=== PATIENT | female | born 1975 | race Caucasian/White ===

== ENCOUNTER 2018-09-23 20:53 | Emergency (ER) | payer OTHER ==
[~2018-09-23] VITALS: Ht 170.2 cm; Wt 78.9 kg
[2018-09-23 21:13] VITALS: BP 155/89
[2018-09-23 22:04] VITALS: BP 136/89
--- NOTE | 2018-09-23 22:13 | DIREP ---
PROCEDURE:XRAY WRIST MIN 3VW-LT COMPARISON:None. INDICATIONS:WRIST PAIN FINDINGS: BONES:No acute fracture. Diffuse sclerosis and cortical irregularity involving the proximal pole of the scaphoid, suspicious for avascular necrosis. JOINTS:No dislocation. Carpal alignment is normal. Mild degenerative changes involving the STT, scapholunate, radiocarpal joints. SOFT TISSUES:Normal. OTHER:No additional findings. CONCLUSION: 1. Diffuse sclerosis and cortical irregularity involving the proximal pole of the left scaphoid, suspicious for avascular necrosis. 2. No acute fracture or dislocation. 3. Mild degenerative changes, as above. Dictated by: Ross New MD on 09/23/2018 at 10:10 PM
--- NOTE | 2018-09-23 22:36 | ER.PDOC ---
General Chief Complaint: Extremities Stated Complaint: L WRIST PAIN Time seen by MD: 22:15 Source: patient Exam Limitations: no limitations History of Present Illness Initial Comments Hurt her wrist 8 months ago when bread crate fell on it. Seen in ER and after X-ray was cleared and pain subsided. Now about 1 week ago she noticed increasing pain in the wrist over the dorsolateral aspect of the wrist. No recent trauma or straining, but pain is progressive. Allergies: Coded Allergies: No Known Allergies (Unverified , 06/11/17) Home Meds No Active Prescriptions or Reported Meds Past Medical History Medical History: diabetes Surgical History: cholecystectomy, hysterectomy LMP (females 10-50): hysterectomy Family History Significant Family History: no pertinent family hx Social History Smoking: less than 1 pack/day Alcohol Use: none Drug Use: none Review of Systems Constitutional: no symptoms reported EENTM: no symptoms reported Respiratory: no symptoms reported Cardiovascular: no symptoms reported Gastrointestinal: no symptoms reported Genitourinary: no symptoms reported Musculoskeletal: see HPI Skin: no symptoms reported Psychiatric/Neurological: no symptoms reported Physical Exam General Appearance: Alert, No Apparent Distress Hand: nml inspection, non-tender Wrist: nml inspection, tenderness (tenderness over the dorsolateral wrist distal to radius but dorsal to anatomic snuff box.) Forearm/Elbow: nml inspection, non-tender Arm/Shoulder: nml inspection, non-tender Neuro/Vasc/Tendon: sensation nml, motor nml Skin: warm/dry Head/ENT: nml inspection, pharynx nml Neck/Back: nml inspection, non-tender Respiratory: chest non-tender, breath sounds nml CVS: heart sounds normal, tachycardia Abdomen: non-tender, no organomegaly Results/Orders Results/Orders Orders - LYSSA EDWARDS MD Xr Wrist Lt (09/23/18 21:16) Vital Signs Date Time Temp Pulse Resp B/P (MAP) Pulse Ox O2 Delivery O2 Flow Rate FiO2 09/23/18 22:52 98.4 88 18 97 Room Air 09/23/18 22:42 88 18 147/96 (113) 97 Room Air 09/23/18 22:04 90 18 136/89 (105) 98 Room Air 09/23/18 21:13 98.4 93 18 155/89 (111) 99 Room Air 98.4 09/23/18 21:09 98.4 93 18 99 Room Air 98.4 09/23/18 21:09 98.4 93 18 98.4 Departure Time of Disposition: 22:31 Disposition: 01 HOME, SELF-CARE Impression: Primary Impression: Avascular necrosis Condition: Stable Patient Instructions: Avascular Necrosis Referrals: PCP,UNKNOWN (PCP) PRIMARY CARE PROVIDER Additional Instructions: Tylenol #3 qid prn pain #30, Follow up with orthopedist next week. cock up wrist splint Scripts No Active Prescriptions or Reported Meds Duration or Time Spent with Pa: 15 min LYSSA EDWARDS MD September 23, 2018 22:36
[2018-09-23 22:42] VITALS: BP 147/96
[2018-09-23 22:52] VITALS: BP 147/96
== END 2018-09-23 22:50 | disposition home or self-care (01) ==
LOC: ER 20:53
DX: M87.9 Osteonecrosis, unspecified (principal); E11.9 Type 2 diabetes mellitus without complications; F17.210 Nicotine dependence, cigarettes, uncomplicated; Z90.49 Acquired absence of other specified parts of digestive tract; Z90.710 Acquired absence of both cervix and uterus
CPT/HCPCS: 99284; 73110-LT

== ENCOUNTER 2020-08-12 16:59 | Emergency (ER) | payer OTHER ==
[~2020-08-12] VITALS: Ht 170.2 cm; Wt 62.1 kg
[2020-08-12 17:12] VITALS: BP 127/87
[2020-08-12] MEDS ORDERED: SOLU-MEDROL IM STA (17:28)
[2020-08-12] MEDS ORDERED: DECADRON IH STA (17:28)
[2020-08-12] MEDS ORDERED: DUO 0.5-3(2.5) MG/3 ML IH STA (17:28)
[2020-08-12] MEDS ORDERED: DECADRON ONE (17:30)
[2020-08-12] MEDS ORDERED: DUO 0.5-3(2.5) MG/3 ML IH ONE (17:30)
[2020-08-12] MEDS ORDERED: SOLU-MEDROL ONE (17:31)
--- NOTE | 2020-08-12 17:33 | ER.PDOC ---
General Chief Complaint: Cough/Congestion Stated Complaint: COUGH/FEVER Time seen by MD: 17:29 Source: patient Exam Limitations: no limitations History of Present Illness Initial Comments 45 years old smoker complaining of fever, cough and chest congestion for 2 days. No chest pain or shortness of breath. Timing/Duration: gradual Severity: moderate Associated Symptoms: fever/chills, runny nose, cough Allergies: Coded Allergies: No Known Allergies (Unverified , 06/11/17) Home Meds No Active Prescriptions or Reported Meds Constitutional: see HPI EENTM: see HPI Respiratory: see HPI Cardiovascular: no symptoms reported Gastrointestinal: no symptoms reported All Other Systems: Reviewed and Negative Past Medical History Medical History: diabetes Surgical History: cholecystectomy, hysterectomy, tubal Social History Alcohol Use: none Drug Use: none Physical Exam General Appearance: alert, no distress Nose: rhinorrhea Throat: pharynx nml, airway nml Neck: nml inspection, supple Respiratory: no resp.distress, wheezes Abdomen: non-tender, no organomegaly CVS: reg rate & rhythm, heart sounds nml Skin: color nml, no rash, warm/dry Extremities: non-tender, nml ROM, no pedal edema NEURO/PSYCH: oriented x 3, CN's nml as tested, motor nml, sensation nml, mood/affect nml Results/Orders Results/Orders Vital Signs Date Time Temp Pulse Resp B/P (MAP) Pulse Ox O2 Delivery O2 Flow Rate FiO2 08/12/20 17:12 98.7 96 16 95 08/12/20 17:12 98.7 96 16 127/87 (100) 95 Room Air 08/12/20 17:12 98.7 96 16 Progress Progress Patient feeling better with the breathing treatments. She will be discharged home with antibiotic, inhaler and steroids. ER DEPART Departure Time of Disposition: 17:31 Disposition: 01 HOME, SELF-CARE Impression: Primary Impression: Acute bronchitis Condition: Stable Referrals: DEBORAH OLIVA MD (PCP) PRIMARY CARE PROVIDER Additional Instructions: Z pack Prednisone Albuterol HFA Mucinex DM OTC as directed F/U with your PCP in 5-7 days Return to ED if worsening symptoms or concerns Scripts No Active Prescriptions or Reported Meds Duration or Time Spent with Pa: 10 min Problem Qualifiers Primary Impression: Acute bronchitis Bronchitis organism: unspecified organism Qualified Codes: J20.9 - Acute bronchitis, unspecified EROS,PAM Tipton MD Aug 12, 2020 17:33
== END 2020-08-12 17:44 | disposition home or self-care (01) ==
LOC: ER 16:59
DX: J20.9 Acute bronchitis, unspecified (principal); E11.9 Type 2 diabetes mellitus without complications; Z90.49 Acquired absence of other specified parts of digestive tract; Z90.710 Acquired absence of both cervix and uterus
CPT/HCPCS: 94640; 96372; 99283; J1100; J2930; J7620

== ENCOUNTER 2020-09-11 12:25 | Emergency (ER) | payer OTHER ==
[~2020-09-11] VITALS: Ht 170.2 cm; Wt 78.0 kg
--- NOTE | 2020-09-11 12:35 | ER.PDOC ---
General Chief Complaint: Requesting Medical Care Stated Complaint: SORE THROAT Time seen by MD: 12:28 Source: patient Exam Limitations: no limitations History of Present Illness Initial Comments This 45-year-old white female comes in with a complaint of a sore throat. She states that it is on the left side 1 day could be on the right side the next day. She states that she has ear pain with swallowing. The ear pain will be on what ever side this throat is sore. Patient does state that she has chronic bronchitis from smoking. She was recently treated with a Z-Steve approximately 3 weeks ago. Patient still is complaining of some wheezing and she has running out of her albuterol inhaler so I will refill that.Patient does not have any symptoms that would suggest an acute infectious process. It sounds more likely that she has some allergy issues on top of her chronic bronchitis issues and that she is is going to have to treat it symptomatically. Timing/Duration: gradual Associated Symptoms: mild sore throat, runny nose, congestion, earache (R), earache (L), cough Severity: moderate Worsen By: nothing Prior symptoms/Treatment: Similar symptoms previous, Recenly Seen Allergies: Coded Allergies: No Known Allergies (Unverified , 06/11/17) Home Meds No Active Prescriptions or Reported Meds Past Medical History Medical History: diabetes, other (Chronic bronchitis) Surgical History: cholecystectomy, hysterectomy, tubal Social History Smoking: less than 1 pack/day Alcohol Use: none Drug Use: none Ears: see HPI Nose: see HPI Throat: see HPI Respiratory: cough, shortness of breath, wheezing All Other Systems: Reviewed and Negative Physical Exam General Appearance: alert, no distress Head/Neck: head nml inspection, neck nml inspection, trachea midline, no lymphadenopathy, thyroid nml Eyes: eyes nml inspection, PERRL, no nystagmus Mouth: lips, gums nml, no drooling, no thrush, membranes nml Throat: pharynx nml, voice nml, no airway problems Ears/Nose: nml inspection Respiratory: no resp. distress, wheezing CVS: reg. rate & rhythm, heart sounds nml Abdomen: non-tender, no organomegaly Extremities: non-tender, ROM nml Skin Exam: Normal Color, Warm/Dry NEURO/PSYCH: oriented X3, mood/effect nml Results/Orders Results/Orders Vital Signs Date Time Temp Pulse Resp B/P (MAP) Pulse Ox O2 Delivery O2 Flow Rate FiO2 09/11/20 13:12 98.5 89 16 131/91 (104) 97 Room Air 09/11/20 12:51 98.5 88 16 137/85 (102) 97 Room Air 09/11/20 12:45 98.5 88 16 137/85 (102) 97 Room Air 09/11/20 12:45 98.5 88 16 97 09/11/20 12:45 98.5 88 16 ER DEPART Departure Time of Disposition: 13:31 Disposition: 01 HOME, SELF-CARE Impression: Primary Impression: Chronic asthmatic bronchitis Condition: Stable Referrals: DEBORAH OLIVA MD (PCP) PRIMARY CARE PROVIDER Scripts No Active Prescriptions or Reported Meds Comments Alb MDI 2 puffs q4-6 hrs Duration or Time Spent with Pa: 20m ASHLEY CABRERA MD September 11, 2020 12:35
--- NOTE | 2020-09-11 12:40 | NUR ---
ARRIVAL PT ARRIVED TO ED WITH C/O SORE THROAT, EAR PAIN, PRODUCTIVE COUGH IN THE MORNINGS. PT REPORTS SHE HAS HAS BEEN SICK FOR 2 WEEKS, WAS SEEN IN THE ER AND DIAGNOSED WITH BRONCHITIS, FOLLOWED UP WITH HER PRIMARY A FEW DAYS AGO REGARDING LINGERING COUGH AND WAS TOLD IT IS JUST THE BONCHITIS CONTINUEING TO WORK ITS COURSE. PT WAS CONCERRED TO RETURNED TO THE ER. BEDSIDE MONITORS APPLIED. VITAL SIGNS STABLE. BED IN LOW LOCKED POSITION.
[2020-09-11 12:45] VITALS: BP 137/85
[2020-09-11 12:51] VITALS: BP 137/85
[2020-09-11 13:12] VITALS: BP 131/91
== END 2020-09-11 13:38 | disposition home or self-care (01) ==
LOC: ER 12:25
DX: J44.9 Chronic obstructive pulmonary disease, unspecified (principal); E11.9 Type 2 diabetes mellitus without complications; F17.210 Nicotine dependence, cigarettes, uncomplicated; Z90.49 Acquired absence of other specified parts of digestive tract; Z90.710 Acquired absence of both cervix and uterus
CPT/HCPCS: 99281